=== PATIENT | female | born 1985 ===

== ENCOUNTER 2020-12-12 23:25 | Emergency (ER) | payer OTHER ==
[2020-12-12 23:40] VITALS: BP 155/87
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
== END 2020-12-13 01:07 | disposition home or self-care (01) ==
LOC: ED 23:25
DX: S39.012A Strain of muscle, fascia and tendon of lower back, initial encounter (principal); S80.02XA Contusion of left knee, initial encounter; S09.90XA Unspecified injury of head, initial encounter; V89.2XXA Person injured in unspecified motor-vehicle accident, traffic, initial encounter; Y93.89 Activity, other specified; Y92.488 Other paved roadways as the place of occurrence of the external cause; Y99.8 Other external cause status
CPT/HCPCS: 99282